=== PATIENT | female | born 2000 | race African-American/Black ===

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

== ENCOUNTER 2020-09-23 11:58 | Emergency (ER) | payer SELFPAY ==
[~2020-09-23] VITALS: Ht 167.6 cm; Wt 68.0 kg
[2020-09-23] MEDS ORDERED: ONDANSETRON HCL 4MG/2ML INJ IV STA (12:38)
[2020-09-23] MEDS ORDERED: MORPHINE SULFATE 4 MG/ML CPJ (NOT FOR IM USE) IV STA (12:38)
[2020-09-23] MEDS ORDERED: TETANUS, DIPHTHERIA, PERTUSSIS VAC/PF 0.5ML (>7YR OLD) IM ONE (12:45)
[2020-09-23] MEDS ORDERED: SODIUM CHLORIDE 0.9% 1,000 ML IV ONE (12:45)
[2020-09-23 13:53] LABS: EOSINOPHILS % 2.7 % (0.0-5.0); HEMATOCRIT. 41.5 % (36.0-48.0); HEMOGLOBIN. 13.7 g/dL (12.0-16.0); LYMPHOCYTES % 23.9 % (20.0-50.0); MEAN CORPUSCULAR VOLUME 84.8 fL (81.0-99.0); MEAN PLATELET VOLUME 9.3 fl (7.4-10.4); MONOCYTES % 6.9 % (2.0-8.0); NEUTROPHILS % 65.5 % (40.0-76.0); PLATELET 272 x1000/uL (130-400); RED BLOOD CELL COUNT 4.89 mill/uL (4.2-5.4); RED CELL DISTRIBUTION WIDTH 14.8 % (11.6-14.6)
[2020-09-23 13:58] LABS: CHLORIDE 105 mEq/L (98-107)
[2020-09-23 13:58] LABS: CLARITY URINE CLEAR (CLEAR); COLOR URINE YELLOW (YELLOW); KETONES URINE NEGATIVE (NEGATIVE); LEUKOCYTE ESTERASE URINE 1+ (NEGATIVE); NITRITE URINE NEGATIVE (NEGATIVE); OCCULT BLOOD URINE TRACE (NEGATIVE); PROTEIN URINE TRACE (NEGATIVE); SPECIFIC GRAVITY URINE 1.018 (1.005-1.030)
[2020-09-23 14:02] LABS: PROTHROMBIN TIME 10.3 sec (9.6-11.0)
[2020-09-23 14:03] LABS: HCG SCREEN NEGATIVE
[2020-09-23] MEDS ORDERED: IOHEXOL-300 100 ML BOTTLE ONE (15:24)
[2020-09-23] MEDS ORDERED: BACITRACIN ZINC OINT UDPKT TOP ONE (15:30)
[2020-09-23] MEDS ORDERED: TRAM50TA3 MT (15:38)
[2020-09-23] MEDS ORDERED: IBUP-2029 MT (15:38)
[2020-09-23 16:09] VITALS: BP 128/82
== END 2020-09-23 16:16 | disposition home or self-care (01) ==
LOC: ER 11:58
DX: S70.01XA Contusion of right hip, initial encounter (principal); S30.810A Abrasion of lower back and pelvis, initial encounter; M54.2 Cervicalgia; V49.59XA Passenger injured in collision with other motor vehicles in traffic accident, initial encounter; Y93.89 Activity, other specified; Y92.488 Other paved roadways as the place of occurrence of the external cause
CPT/HCPCS: 36415; 72125; 74177; 80053; 81003; 83690; 84703; 85025; 85610; 96361; 96374; 96375; 99285; J2270; J2405; J7030; Q9967; Z7610